=== PATIENT | female | born 1995 | race Caucasian/White ===

== ENCOUNTER 2018-11-25 18:57 | Emergency (ER) | payer OTHER ==
[~2018-11-25] VITALS: Ht 170.2 cm; Wt 90.7 kg
[2018-11-25 19:18] LABS: URINE BILIRUBIN NEGATIVE (Negative); URINE CLARITY CLOUDY; URINE COLOR ORANGE; URINE GLUCOSE-RANDOM* NEGATIVE (Negative); URINE KETONES NEGATIVE (Negative); URINE NITRITE-REFLEX NEGATIVE (Negative); URINE PROTEIN (DIPSTICK) TRACE (Negative); URINE SPECIFIC GRAVITY 1.015 (1.005-1.035)
[2018-11-25 19:19] LABS: URINE BLOOD 3+ (Negative); URINE LEUKOCYTES-REFLEX TRACE (Negative); URINE UROBILINOGEN 0.2 E.U./dl (0.2-1.0)
[2018-11-25 19:26] LABS: CASTS None Seen /LPF (None Seen); SQUAMOUS 4-10 Moderate /LPF (0-3)
[2018-11-25 19:27] LABS: BACTERIA-REFLEX None Seen /HPF (None Seen); CRYSTALS None Seen /LPF (None Seen); URINE RBC >20 Many /HPF (0-2); URINE WBC-REFLEX 6-15 Few /HPF (0-5)
[2018-11-25] MEDS ORDERED: NOHOMEMEDICATIONS (19:35)
[2018-11-25] MEDS ORDERED: MACROBID 100 M100 M1 PO (20:22)
[2018-11-25] MEDS ORDERED: CIPROFLOXACIN500 M1 PO (20:43)
[2018-11-25 20:57] VITALS: BP 122/72
== END 2018-11-25 20:57 | disposition home or self-care (01) ==
LOC: ER 18:57
PROVIDERS: Student in an Organized Health Care Education/Training Program
DX: N39.0 Urinary tract infection, site not specified (principal); F17.210 Nicotine dependence, cigarettes, uncomplicated; Z88.1 Allergy status to other antibiotic agents; Z88.2 Allergy status to sulfonamides; Z88.8 Allergy status to other drugs, medicaments and biological substances

== ENCOUNTER 2019-10-27 07:06 | Emergency (ER) | payer BC, OTHER ==
[~2019-10-27] VITALS: Ht 170.2 cm; Wt 112.0 kg
[~2019-10-27 07:06] MED LIST: CIPROFLOXACIN500 M1 PO; MACROBID 100 M100 M1 PO; NOHOMEMEDICATIONS
[2019-10-27 07:08] VITALS: BP 132/87
[2019-10-27] MEDS ORDERED: PRENATAL PO (07:14)
[2019-10-27] MEDS ORDERED: MEDROLDOSEPACK PO (07:43)
== END 2019-10-27 08:03 | disposition home or self-care (01) ==
LOC: ER 07:06
DX: M54.10 Radiculopathy, site unspecified (principal); M25.511 Pain in right shoulder; F17.210 Nicotine dependence, cigarettes, uncomplicated; Z88.1 Allergy status to other antibiotic agents; Z88.2 Allergy status to sulfonamides; Z88.8 Allergy status to other drugs, medicaments and biological substances